=== PATIENT | female | born 1955 | race Caucasian/White ===

== ENCOUNTER 2018-09-21 11:31 | Inpatient (IN) | payer OTHER ==
[2018-09-21] MEDS ORDERED: HYDROmorphone 0.5 MG/0.5 ML SYRINGE ONE (11:51)
[2018-09-21] MEDS ORDERED: Ondansetron PF 4 MG/2 ML Vial ONE ×2 (12:25→13:12)
[2018-09-21] MEDS ORDERED: CEFAZOLIN/Water 2 GM/20 ML SYRINGE SLOW IVP SCH ×2 (13:00→20:45)
[2018-09-21] MEDS ORDERED: Lidocaine 1% PF 5 ML VIAL ONE (13:12)
[2018-09-21] MEDS ORDERED: Glycopyrrolate 0.2 MG/ML 5 ML SYRINGE ONE (13:12)
[2018-09-21] MEDS ORDERED: PROPOFOL 200 MG/20 ML VIAL ONE (13:12)
[2018-09-21] MEDS ORDERED: Succinylcholine Chloride 20 MG/ML 10 ml SYRINGE FS ONE (13:12)
[2018-09-21] MEDS ORDERED: Ketorolac Tromethamine 30 MG/ML VIAL ONE ×2 (13:12→14:09)
[2018-09-21 13:25] LABS: #Basophils 0.1 thou/uL (0.0-0.2); #Eosinphils 0.2 thou/uL (0.0-0.7); #Lymphocytes 1.6 thou/uL (1.20-3.40); #Monocytes 0.6 thou/uL (0.11-0.59); #Neutrophils 6.5 thou/uL (1.40-6.50); %Basophils 0.9 % (0.0-1.0); %Eosinophils 1.8 % (0.0-10.0); %Lymphocytes 17.8 % (21.0-51.0); %Monocytes 6.6 % (0.0-10.0); %Neutrophils 72.9 % (42.0-75.0); Hemoglobin 14.5 g/dL (12.0-16.0); Mean Corpuscular HGB CONC 34.3 g/dL (32.0-36.0); Mean Corpuscular Hemoglobin 30.2 pg (27.0-31.0); Mean Corpuscular Volume 88.1 fL (78.0-98.0); Mean Platelet Volume 7.7 fL (7.4-10.4); Platelet Count 261 thou/uL (130-400); RBC Distribution Width 11.7 % (11.5-14.5); Red Blood Cell (RBC) Count 4.79 mill/uL (4.20-5.40)
--- NOTE | 2018-09-21 13:25 | CON ---
DATE OF CONSULTATION: 09/21/2018 REQUESTING PHYSICIAN: Dr. Miles Branch CONSULTING PHYSICIAN: Isac Day M.D. REASON FOR CONSULTATION: Left patella fracture. HISTORY OF PRESENT ILLNESS: This is a 62-year-old female who presented to the Emergency Department b y way of ambulance after a slip and fall at [facility]. She states that she lost her footing beneath he r and fell landing directly on top of her left kneecap. The patient states that she was unable to be ar weight. She felt her knee separate. She does report some mild tingling in her left foot. She de nies hitting her head or losing consciousness. She denies any other injuries. PAST MEDICAL HISTORY: Ovarian mass with stage 3 cancer, acid reflux. PAST SURGICAL HISTORY: Cholecystectomy, , and ovarian cancer removal as well as a left toe s urgery. SOCIAL HISTORY: The patient denies any alcohol, tobacco or illicit drug use. FAMILY HISTORY: Reviewed and noncontributory. REVIEW OF SYSTEMS: Ten point review of systems conducted and otherwise negative except for as stated above. PHYSICAL EXAMINATION: VITAL SIGNS: Blood pressure 153/45, pulse of 70, respiratory rate of 20, temperature 97.5, oxygen sa turation is 100% on room air. GENERAL: The patient is awake and alert. She is in no acute distress. She is accompanied today by her . She is pleasant and cooperative with exam today. HEENT: Head is normocephalic, atraumatic. NECK: Supple. Trachea midline. Breathing is nonlabored. EXTREMITIES: Evaluation of the left lower extremity shows soft tissue swelling present over the delgado lla. There is a palpable defect. The patient is unable to flex at the knee. She reports sensation intact distally. Dorsalis pedis pulse is palpable. The patient able to move all digits in her left foot. EHL is intact. Remainder of the extremity exam is unremarkable for any findings of trauma. RADIOGRAPHIC FINDINGS: Including three views of the left knee show a transverse fracture of the delgado lla with separation of the fragments. Otherwise, no acute findings. ASSESSMENT: Left displaced transverse patella fracture. PLAN: At this point, we have discussed surgical intervention in order to restore function of her lef t lower extremity and preserve her anatomy. She is a very active lady. This will include open reduc tion internal fixation of the left patella fracture. Risks, benefits, and alternatives discussed at length with the patient and her today. These include, but are not limited to bleeding, infec tion, neurovascular injury, malunion and nonunion. They are amenable with this and ready to go forwa rd with surgery. She has been n.p.o. since 10:30 this morning. We will plan to do her case this tera reyes. She has been posted to the surgery board. She will be admitted to the Trauma Service.
[2018-09-21 13:30] LABS: PTT 26.7 SEC (22.9-36.1)
[2018-09-21 13:44] LABS: CKMB 1.2 ng/mL (0-6.6); Troponin I Less than 0.010 ng/mL (< 0.028)
[2018-09-21 13:46] LABS: ALT (SGPT) 30 U/L (8-55); AST (SGOT) 29 U/L (5-34); Albumin 4.6 g/dL (3.4-4.8); Alkaline Phosphatase 77 U/L (40-150); Anion Gap 15 mmol/L (10-20); BUN (Urea Nitrogen) 12 mg/dL (9.8-20.1); Bilirubin, Total 0.8 mg/dL (0.2-1.2); Calc. Creatinine Clearance 0 mL/min (70-130); Carbon Dioxide 23 mmol/L (23-31); Chloride 107 mmol/L (98-107); Estimated GFR-MDRD 69; Globulin 2.8 g/dL (2.4-3.5); Glucose 121 mg/dL (80-115); Potassium 3.6 mmol/L (3.5-5.1); Protein, Total 7.4 g/dL (6.0-8.3); Sodium 141 mmol/L (136-145)
--- NOTE | 2018-09-21 13:52 | RAD ---
4 VIEWS LEFT KNEE: Date: 09/21/18 HISTORY: Left knee injury and pain, deformity. Patient fell directly on left knee. FINDINGS: There is a fracture involving the mid portion of the patella with distraction and mild displacement o f fracture fragments. Fracture fragments are distracted by approximately 2.4 cm. The proximal fractur e fragments are also slightly displaced anteriorly with respect to the distal fracture fragment. Ther e is overlying subcutaneous soft tissue swelling. There is a tiny joint effusion present. No addition al fracture is seen and there is no dislocation. No joint space narrowing is appreciated. IMPRESSION: Distracted and mildly displaced fracture involving the patella with overlying subcutaneous soft tissu e swelling. POS: [facility]
--- NOTE | 2018-09-21 13:55 | RAD ---
SINGLE VIEW CHEST: Date: 09/21/18 COMPARISON: None. HISTORY: Preoperative radiograph. FINDINGS: Single view of the chest shows a normal sized cardiomediastinal silhouette. There is no evidence of c onsolidation, mass, or pleural effusion. The bones are unremarkable. IMPRESSION: No evidence of acute cardiopulmonary disease. POS: [facility]
[2018-09-21] MEDS ORDERED: traMADol HCl 50 MG TAB PO PRN (13:59)
[2018-09-21] MEDS ORDERED: Dextrose 5% in Water 1,000 ML IV PRN (14:01)
[2018-09-21] MEDS ORDERED: Ondansetron PF 4 MG/2 ML Vial IVP PRN (14:01)
[2018-09-21] MEDS ORDERED: Ondansetron ODT 4 MG TAB PO PRN (14:01)
[2018-09-21] MEDS ORDERED: Dextrose 50% Abboject 50 ML SYRINGE SLOW IVP PRN (14:01)
[2018-09-21] MEDS ORDERED: Acetaminophen 1,000 MG in Premix Bag 1 BAG IVPB SCH (14:30)
[2018-09-21 16:02] LABS: Bilirubin Negative (Negative); Blood, Urine Negative (Negative); Clarity CLOUDY (Clear); Glucose, Urine (Dipstick) Negative (Negative); Leukocyte Trace (Negative); Nitrite Negative (Negative); Protein, Urine (Dipstick) Negative (Neg-Trace); Specific Gravity, Urine 1.019 (1.002-1.036); Urobilinogen 0.2 mg/dL (0.2-1.0); pH, Urine 8.5 (5.0-9.0)
[2018-09-21 16:06] LABS: Hyaline Casts/LPF 0-3 HYALINE CAST LPF (0-3 Hyaline); Pathc Cast-AUWi Flag 0.14 (0-2.49); Squamous Epithelial 0-3 HPF (0-3); WBC/HPF 0-3 HPF (0-3)
[2018-09-21 16:20] LABS: Bacteria/HPF Rare-Few HPF (None Seen)
[2018-09-21 16:21] LABS: Crystals/HPF 3+ AMORPH PHOS HPF (Negative)
[2018-09-21] MEDS ORDERED: Fentanyl 100 MCG/2 ML VIAL ONE ×4 (19:30→22:54)
--- NOTE | 2018-09-21 19:55 | HP-2 ---
DATE OF ADMISSION: 09/21/2018 TRAUMA ACTIVATION: Not applicable. ATTENDING PHYSICIAN: Dr. Dhillon. HISTORY OF PRESENT ILLNESS: This is a 62-year female who presented to [facility] stat post mechanical fall. Per patient, she was walking in [facility], and slipped on some water in front of an ice machine. The patient fell landing on her left knee. She had immediate onset of pain and deformity. She was seen and evaluated in the emergency room and found to have a left patellar fractu re. Orthopedic Surgery was notified and Trauma was asked to admit. Upon my evaluation, the patient states that her pain has been well controlled and she vocalized no other complaint. MEDICATIONS: Pravastatin 10 mg. ALLERGIES: SULFA medications and adverse reaction to MORPHINE. PAST MEDICAL HISTORY: Significant for hyperlipidemia, diverticulosis and ovarian cancer, status post resection and chemotherapy. PAST SURGICAL HISTORY: Hysterectomy, cholecystectomy, breast biopsy for benign cyst, left foot/toe s urgery, and back surgery. SOCIAL HISTORY: She is a retired nurse. Endorses rare alcohol use. Denies tobacco or illicit drug use. FAMILY HISTORY: Significant for father with COPD. REVIEW OF SYSTEMS: A 10-point review of systems was performed and negative except as indicated in th e HPI. PHYSICAL EXAMINATION: VITAL SIGNS: Blood pressure 105/70, pulse 72, respiration 18, O2 saturation 99% on room air, tempera ture 98.1. GENERAL: Well-developed female in no acute distress, resting in bed. HEAD: Normocephalic, atraumatic. EYES: Pupils were PERRL. Extraocular movements are intact. NECK: Supple. Trachea is midline. CHEST: Atraumatic. PULMONARY: Normal work of breathing, symmetric rise. LUNGS: Clear to auscultation bilaterally. ABDOMEN: Soft, nontender, nondistended, atraumatic. Bowel sounds are positive. BACK: Reported as being within normal limits. EXTREMITIES: Bilateral upper extremities within normal limits. Right knee with old multiple small a brasions. Left lower extremity is in a knee immobilizer. The left knee appears swollen and with ecc hymosis and tender to palpation. Range of motion limited secondary to pain. Pulses are 2+ bilateral ly. NEUROLOGIC: GCS of 15 and no focal deficit is noted. LABORATORY DATA: WBC 9.0, hemoglobin 14.5, hematocrit 42.2, platelet count 261. INR is 1.0. Sodium 141, potassium 3.6, chloride 107, carbon dioxide 23, BUN 12, creatinine 0.84, glucose 121. AST and ALT within normal limits. Troponin less than 0.010. EKG with nonspecific T-wave findings in sinus r hythm. Chest x-ray was negative for acute cardiopulmonary process or traumatic injury. ASSESSMENT: 1. Status post mechanical fall. 2. Acute traumatic pain. 3. Left patellar fracture. 4. History of ovarian cancer status post chemo and surgery. PLAN: Admit to Trauma Services. Orthopedic Surgery plans for operative intervention later this even ing. The patient should be n.p.o. at this time. Gentle IV fluid hydration. Perioperative pain jonah gement with p.o. and IV analgesics. Postoperative PT and OT. DVT and gastritis prophylaxis when christian ropriate. Plans for admission were discussed with the patient and family at bedside and all question s were answered at the time of this dictation. Trauma attending has been notified of admission.
[2018-09-21] MEDS ORDERED: CEFAZOLIN/Water 2 GM/20 ML SYRINGE ONE (20:14)
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
[2018-09-21] MEDS ORDERED: Promethazine HCl 25 MG/ML VIAL IM PRN (22:30)
[2018-09-21] MEDS ORDERED: Ondansetron HCl/PF 4 MG/2 ML Vial IVP PRN (22:30)
[2018-09-21] MEDS ORDERED: Promethazine HCl 25 MG/ML VIAL SLOW IVP PRN (22:30)
[2018-09-21] MEDS: Ibuprofen 600 MG TAB PO SCH ×2 (23:19→23:24)
[2018-09-21] MEDS: Famotidine 20 MG TAB PO SCH (23:20)
[2018-09-21] MEDS: traMADol HCl 50 MG TAB PO SCH ×2 (23:20→23:23)
[2018-09-21] MEDS: Sodium Chloride 0.9% 1,000 ML IV SCH (23:20)
[2018-09-21] MEDS: Acetaminophen 500 MG TAB PO SCH (23:20)
[2018-09-21 23:30] VITALS: BMI 23.8
[2018-09-22] MEDS: Fentanyl 100 MCG/2 ML VIAL SLOW IVP PRN ×4 (00:41→08:08)
--- NOTE | 2018-09-22 01:31 | OP ---
PREOPERATIVE DIAGNOSIS: Left patellar fracture. POSTOPERATIVE DIAGNOSIS: Left patellar fracture. PROCEDURE: ORIF left patella using tension band technique. SURGEON: Isac Day M.D. ANESTHESIA: General. BLOOD LOSS: Minimal. DRAINS: None. COMPLICATIONS: None. TOURNIQUET TIME: 13 minutes. PROCEDURE IN DETAIL: After appropriate consent was obtained, the patient was taken to the operating where general anesthesia, his left leg was prepped and draped in the usual sterile fashion. I made a longitudinal incision, patellar fracture was exposed. There was a large hematoma in the joint, this was evacuated. I irrigated the joint to make sure, there were no loose bodies loose fragments, but that was an anatomically reduced. Two K-wires were placed across the fracture and a Synthes wire was placed in [id number] fashion deep to the wires through the tendon and compressed, the fracture was compressed nicely with anatomic reduction in the articular surface. Retinaculum was repaired on both sides with #2 Vicryl, subcutaneous tissue closed with 2-0 Vicryl, the skin was closed with stapl es. Sterile dressings applied. There were no complications.
[2018-09-22] MEDS: Acetaminophen 500 MG TAB PO SCH (02:46)
[2018-09-22] MEDS: CEFAZOLIN 2 GM/50 ML-DEXTROSE 2 GM in Premix Bag 1 BAG IVPB SCH ×3 (04:44→20:24)
[2018-09-22] MEDS: Sodium Chloride 0.9% 1,000 ML IV SCH (04:48)
[2018-09-22] MEDS ORDERED: traMADol HCl 50 MG TAB PO SCH (06:00)
[2018-09-22 06:10] LABS: #Lymphocytes 2.5 thou/uL (1.20-3.40); #Neutrophils 6.8 thou/uL (1.40-6.50); %Basophils 0.2 % (0.0-1.0); %Eosinophils 0.4 % (0.0-10.0); %Monocytes 9.2 % (0.0-10.0); %Neutrophils 66.2 % (42.0-75.0); Hemoglobin 10.9 g/dL (12.0-16.0); Mean Corpuscular HGB CONC 33.5 g/dL (32.0-36.0); Mean Corpuscular Volume 89.3 fL (78.0-98.0); Mean Platelet Volume 7.5 fL (7.4-10.4); Platelet Count 237 thou/uL (130-400); RBC Distribution Width 11.9 % (11.5-14.5); Red Blood Cell (RBC) Count 3.64 mill/uL (4.20-5.40); White Blood Cell (WBC) Count 10.3 thou/uL (4.8-10.8)
[2018-09-22 06:12] LABS: Anion Gap 9 mmol/L (10-20); BUN (Urea Nitrogen) 11 mg/dL (9.8-20.1); Calc. Creatinine Clearance 77 mL/min (70-130); Calcium 8.4 mg/dL (7.8-10.44); Carbon Dioxide 21 mmol/L (23-31); Chloride 111 mmol/L (98-107); Estimated GFR-MDRD 66; Glucose 124 mg/dL (80-115); Magnesium 1.8 mg/dL (1.6-2.6); Phosphorus 3.6 mg/dL (2.3-4.7); Potassium 3.9 mmol/L (3.5-5.1); Sodium 137 mmol/L (136-145)
[2018-09-22] MEDS: Ibuprofen 600 MG TAB PO SCH (06:19)
[2018-09-22] MEDS ORDERED: HYDROcodone/Acetaminophen 7.5/325 mg Tablet PO PRN (07:33)
[2018-09-22] MEDS: Famotidine 20 MG TAB PO SCH ×2 (08:01→20:20)
[2018-09-22] MEDS ORDERED: HYDROcodone/Acetaminophen 7.5/325 mg Tablet PO SCH (09:00)
[2018-09-22] MEDS ORDERED: Prevnar 13-Val Conj/PF 0.5 ML SYRINGE IM ONE (09:00)
[2018-09-22] MEDS: Gabapentin 100 MG CAP PO SCH ×2 (09:56→09:57)
[2018-09-22] MEDS ORDERED: Metoclopramide HCl 10 MG/2 ML VIAL IVP PRN (10:02)
[2018-09-22] MEDS ORDERED: Acetaminophen/Codeine 30-300mg Tablet PO PRN (10:37)
[2018-09-22] MEDS ORDERED: Cyclobenzaprine 10 MG TAB PO PRN (10:37)
[2018-09-22] MEDS ORDERED: Polyethylene Glycol 3350 17 GM Packet PO SCH (11:30)
[2018-09-22] MEDS ORDERED: Senokot S 8.6-50 MG TAB PO SCH (11:30)
[2018-09-22] MEDS: Mag-Al 1200 mg/1200 mg/30 ML UDCUP PO SCH ×2 (11:52→17:29)
[2018-09-22] MEDS: Ketorolac Tromethamine 30 MG/ML VIAL IVP SCH ×3 (11:52→23:56)
[2018-09-22] MEDS: Acetaminophen/Codeine 30-300mg Tablet PO SCH ×3 (11:53→20:21)
--- NOTE | 2018-09-22 13:03 | PRG ---
DATE OF SERVICE: 09/22/2018 SUBJECTIVE: Cristal Hopkins is a 62-year-old female hospital day #2 status post mechanical fall result ing in left patellar fracture. She is postop day #1 status post repair of that injury. Overnight, t he patient did have difficulties with pain management. This morning, her pain regimen has been incre ased; however, she states that her pain still remains as 7/10. Patient also has an additional compla int of gastric reflux. OBJECTIVE: VITAL SIGNS: Temperature 98.3, pulse 61, respirations 22, O2 sat 100% on room air, blood pressure 13 2/59. GENERAL: Resting in bed in mild distress secondary to pain. PULMONARY: Normal work of breathing. Symmetric rise. CARDIOVASCULAR: Regular rate and rhythm. GASTROINTESTINAL: Abdomen is soft, nontender, nondistended. MUSCULOSKELETAL: Left lower extremity. Orthopedic dressing clean, dry, and intact. Knee immobilize r is in place. NEUROLOGIC: No focal deficit is noted. LABORATORY FINDINGS: WBC 10.3, hemoglobin 10.9, hematocrit 32.6, platelet count 237. Sodium 137, po tassium 3.9, chloride 111, carbon dioxide 21, BUN 11, creatinine 0.87, glucose 124, phosphorus 3.6, m agnesium 1.8. ASSESSMENT: 1. Status post mechanical fall. 2. Left patellar fracture, postop day #1. 3. Acute traumatic pain. 4. Gastroesophageal reflux disease. PLAN: Pain regimen discussed extensively with patient. She wishes to try Tylenol #3. We will disco ntinue [place] and attempt at this time. Add gabapentin and Flexeril. Discontinue IV narcotics. Sophie ent is already on Pepcid b.i.d. We will add Maalox. 24 hours IV NSAID. Add bowel regimen. Postope rative PT and OT. Follow up pain management this afternoon. Plan of care was discussed with the pat ient at bedside and all questions were answered at the time of this dictation. The patient was discu ssed with trauma attending.
[2018-09-22] MEDS: Gabapentin 300 MG CAP PO SCH ×2 (14:05→20:20)
[2018-09-22] MEDS: Senokot S 8.6-50 MG TAB PO SCH (20:20)
[2018-09-22] MEDS ORDERED: Enoxaparin Sodium 40 MG/0.4 ML SYRINGE SC SCH (21:00)
[2018-09-23] MEDS: Acetaminophen/Codeine 30-300mg Tablet PO SCH ×4 (04:15→13:41)
[2018-09-23] MEDS: Ketorolac Tromethamine 30 MG/ML VIAL IVP SCH (06:02)
[2018-09-23] MEDS: Mag-Al 1200 mg/1200 mg/30 ML UDCUP PO SCH ×2 (07:58→11:52)
[2018-09-23] MEDS: Gabapentin 300 MG CAP PO SCH ×2 (08:35→14:39)
[2018-09-23] MEDS: Famotidine 20 MG TAB PO SCH (08:35)
[2018-09-23] MEDS: Senokot S 8.6-50 MG TAB PO SCH (08:35)
[2018-09-23] MEDS ORDERED: Polyethylene Glycol 3350 17 GM Packet PO SCH (09:00)
[2018-09-23] MEDS ORDERED: Ibuprofen 600 MG TAB PO SCH (14:00)
[2018-09-23 15:34] VITALS: BP 121/44; TEMP 98.4
--- NOTE | 2018-09-24 02:14 | DIS ---
DATE OF ADMISSION: 09/21/2018 DATE OF DISCHARGE: 09/23/2018 ADMISSION DIAGNOSES: 1. Status post mechanical fall. 2. Acute traumatic pain. 3. Left patellar fracture. 4. History of ovarian cancer status post chemotherapy and surgery. DISCHARGE DIAGNOSES: 1. Status post mechanical fall. 2. Acute traumatic pain. 3. Left patellar fracture. 4. History of ovarian cancer status post chemotherapy and surgery. CONSULTANTS: Dr. Day, Orthopedic Surgery. PROCEDURES: 09/21/2018, open reduction and internal fixation of left patellar fracture with Dr. Yaya bhakta. HOSPITAL COURSE: Cristal Bonner is a 62-year-old female who sustained a mechanical fall in [facility] resulting in a left patellar fracture. The patient underwent operative intervention to her inj ury on the date of admission. Post-intervention, patient had significant pain for which multiple percy n regimens were attempted. Later on the day postop day 1, the patient's pain was relatively well con trolled and she began working with physical therapy. Postop day #2, the patient was ambulating with physical therapy, although was unable to successfully navigate stairs at that time. However, patient did report to Orthopedic surgery that she felt she had enough assistance at home and was therefore d eemed stable for discharge and discharged by the Orthopedic Surgery team. DISCHARGE DISPOSITION: Home. DISCHARGE CONDITION: Good. PHYSICAL EXAMINATION: VITAL SIGNS: Temperature 98.6, pulse 70, respirations 16, O2 sat 98% on room air, blood pressure 105 /60. GENERAL: Well-developed female in no acute distress, ambulating with walker. PULMONARY: Normal work of breathing, symmetric rise. CARDIOVASCULAR: Regular rate and rhythm. GASTROINTESTINAL: Abdomen is soft, nontender, nondistended. MUSCULOSKELETAL: Knee immobilizer is in place. NEUROLOGIC: No focal deficit is noted. DISCHARGE INSTRUCTIONS: Discharge instructions were provided to the patient, who vocalized rohit meeyrs. The patient is partial weightbearing to left lower extremity. She should continue to wear the knee immobilizer. She is to keep her dressings clean, dry, and intact. FOLLOWUP APPOINTMENTS: The patient should follow up with her primary care provider p.r.n. She is to follow up with Orthopedic Surgery in approximately 10-14 days. She does not need to follow up forma lly with Trauma Services, but may call our office with any questions. DISCHARGE MEDICATIONS: Medication reconciliation completed by Orthopedic Surgery. The patient shoul d continue home medications. Prescriptions provided by their team as documented in the electronic pr dical record. This is merely a summary of the patient's hospitalization. For more in depth information, please see her medical record in its entirety.
--- NOTE | 2018-09-24 08:41 | RAD ---
LEFT KNEE TWO VIEWS: History: Patellar fracture. FINDINGS: Two spot fluoroscopic intraoperative images of the left knee demonstrate interval reduction and inter nal fixation of the patellar fracture noted on exam of 3:11 a.m. from the same date. POS: [facility]
== END 2018-09-23 15:57 | disposition home or self-care (01) | DRG 517 ==
LOC: ERS 11:31 → SDC/OP 20:47 → SURG B 22:51
PROVIDERS: ADMIT Specialist; ATTEND Orthopaedic Surgery
PROC: 0QSF04Z Reposition Left Patella with Internal Fixation Device, Open Approach (ICD-10-PCS; principal; 2018-09-21)
DX: S82.032A Displaced transverse fracture of left patella, initial encounter for closed fracture (principal); Y92.512 Supermarket, store or market as the place of occurrence of the external cause; Z88.2 Allergy status to sulfonamides; E78.5 Hyperlipidemia, unspecified; Z85.43 Personal history of malignant neoplasm of ovary; Z92.21 Personal history of antineoplastic chemotherapy; G89.11 Acute pain due to trauma; K21.9 Gastro-esophageal reflux disease without esophagitis; W01.0XXA Fall on same level from slipping, tripping and stumbling without subsequent striking against object, initial encounter; F41.9 Anxiety disorder, unspecified; F32.9 Major depressive disorder, single episode, unspecified
CPT/HCPCS: 36415; 71045; 76001; 80048; 80053; 81003; 81015; 82553; 83735; 84100; 84484; 85025; 85610; 85730; 87086; 90471; 90670; 90686; 93005; 96365; 96375; G0008; G0009; G0390; G8978-GP-CJ; G8979-GP-CI; J0131; J1170; J1650; J1885; J2001; J2405; J2704; J2765; J3010